=== PATIENT | male | born 1945 | race Caucasian/White ===

== ENCOUNTER 2016-04-15 10:55 | Emergency (ER) | payer MEDICARE, OTHER ==
[2016-04-15 12:17] VITALS: BP 180/83
--- NOTE | 2016-04-15 12:35 | UC ---
Respiratory Complaint HPI - HPI Summary HPI Summary: CHEST CONGESTION X 3 DAYS , + COUGH, NASAL CONGESTION, CHILLS, NO FEVER RASH UNDER LEFT AXILLA , + ITCHY X 7 DAYS, HAD THE RASH IN THE PAST , IMPROVED USING MYCOLOG II - History of Current Complaint Chief Complaint: UCRespiratory Stated Complaint: COUGH,SORE THROAT Time Seen by Provider: 04/15/16 12:23 Hx Obtained From: Patient Onset/Duration: Gradual Onset, Lasting Days - 3, Still Present Timing: Constant Severity Initially: Moderate Severity Currently: Moderate Character: Cough: Nonproductive Aggravating Factors: Allergens, Deep Breaths Alleviating Factors: Nothing Associated Signs And Symptoms: Positive: Chills, URI, Nasal Congestion. Negative: Dyspnea, Fever, Pleuritic Chest Pain, Wheezing, Hemoptysis, Dizziness - Allergies/Home Medications Allergies/Adverse Reactions: Allergies Allergy/AdvReac Type Severity Reaction Status Date / Time Iodinated Diagnostic Agents Allergy Hives Verified 04/15/16 12:17 Chemo for colon C A Allergy Hives Uncoded 04/15/16 12:18 PMH/Surg Hx/FS Hx/Imm Hx Endocrine History Of: Denies: Diabetes Cardiovascular History Of: Denies: Cardiac Disorders Respiratory History Of: Denies: COPD GI/ History Of: Denies: Ulcer Neurological History Of: Denies: TIA Psychological History Of: Denies: Bipolar Disorder Cancer History Of: Reports: Colorectal Cancer - Surgical History Surgical History: Yes Surgery Procedure, Year, and Place: Cyst removed bottom of spine, plate in head , removal of colon tumor-2006. - Family History Known Family History: Positive: Hypertension - Social History Alcohol Use: None Substance Use Type: None Smoking Status (MU): Former Smoker Type: Cigarettes Amount Used/How Often: 1 PPD Length of Time of Smoking/Using Tobacco: 42 Years Have You Smoked in the Last Year: No When Did the Patient Quit Smoking/Using Tobacco: 2006 - Immunization History Most Recent Influenza Vaccination: Not the 2014/2015 Season Review of Systems Constitutional: Chills, Fatigue Skin: Rash Eyes: Negative ENT: Sore Throat, Ear Ache, Nasal Discharge Respiratory: Shortness Of Breath, Cough Cardiovascular: Negative Gastrointestinal: Negative Genitourinary: Negative All Other Systems Reviewed And Are Negative: Yes Physical Exam Triage Information Reviewed: Yes Appearance: Well-Appearing, No Pain Distress, Well-Nourished Vital Signs: Initial Vital Signs Temp 98.8 F 04/15/16 12:06 Pulse 92 04/15/16 12:06 Resp 24 04/15/16 12:06 BP 180/83 04/15/16 12:06 Pulse Ox 97 04/15/16 12:06 Vital Signs Reviewed: Yes Eyes: Positive: Conjunctiva Clear ENT: Positive: Normal ENT inspection, Hearing grossly normal, Pharyngeal erythema, Nasal congestion, Nasal drainage, TMs normal Neck exam: Normal Neck: Positive: Supple, Nontender, No Lymphadenopathy Respiratory: Positive: Chest non-tender, Lungs clear, Normal breath sounds, No respiratory distress Cardiovascular: Positive: RRR, No Murmur, Pulses Normal Skin: Positive: rashes - MACULAR RASH LEFT AXILLA UC Diagnostic Evaluation - Laboratory O2 Sat by Pulse Oximetry: 97 Respiratory Course/Dx - Differential Dx/Diagnosis Provider Diagnoses: BRONCHITIS. SKIN YEAST INFECTION Discharge - Discharge Plan Condition: Stable Disposition: HOME Prescriptions: Azithromycin TAB* [Zithromax TAB (Z-FATOU)*] 0 mg PO .Z-FATOU INSTRUCTIONS #6 tab Nystatin/Triamcinolone CR(NF) [Mycolog CREAM*] 1 applic TOPICAL BID #30 gm Patient Education Materials: Acute Bronchitis (ED), Skin Yeast Infection (ED) Referrals: Michael Way MD [Primary Care Provider] - If Needed
== END 2016-04-15 13:00 | disposition home or self-care (01) ==
LOC: UCCORT 10:55
DX: J40 Bronchitis, not specified as acute or chronic (principal); B37.2 Candidiasis of skin and nail; R53.83 Other fatigue; Z87.891 Personal history of nicotine dependence; Z88.8 Allergy status to other drugs, medicaments and biological substances; Z91.041 Radiographic dye allergy status; Z85.038 Personal history of other malignant neoplasm of large intestine
CPT/HCPCS: 99212; G0463

== ENCOUNTER 2016-06-30 12:55 | Emergency (ER) | payer MEDICARE, OTHER ==
--- NOTE | 2016-06-30 14:51 | UC ---
Throat Pain/Nasal Leonard HPI - HPI Summary HPI Summary: complaint of sore throat and ear pain that started 4 days ago and has been worsening hurts to swallow occasional cough with some sputum at times denies nasal congestion denies fever and chills denies headaches taking sucrets with some relief for 3 days - History of Current Complaint Stated Complaint: SORE THROAT,COUGH Time Seen by Provider: 06/30/16 14:44 Hx Obtained From: Patient - Allergies/Home Medications Allergies/Adverse Reactions: Allergies Allergy/AdvReac Type Severity Reaction Status Date / Time Iodinated Diagnostic Agents Allergy Hives Verified 06/30/16 15:01 Chemo for colon C A Allergy Hives Uncoded 06/30/16 15:01 PMH/Surg Hx/FS Hx/Imm Hx Previously Healthy: Yes Endocrine History Of: Denies: Diabetes Cardiovascular History Of: Denies: Cardiac Disorders Respiratory History Of: Denies: COPD GI/ History Of: Denies: Ulcer Neurological History Of: Denies: TIA Psychological History Of: Denies: Bipolar Disorder Cancer History Of: Reports: Colorectal Cancer - Surgical History Surgical History: Yes Surgery Procedure, Year, and Place: Cyst removed bottom of spine, plate in head , removal of colon tumor-2006. - Family History Known Family History: Positive: Hypertension Negative: Cardiac Disease, Diabetes - Social History Occupation: Retired Lives: With Family Alcohol Use: None Substance Use Type: None Smoking Status (MU): Former Smoker Type: Cigarettes Amount Used/How Often: 1 PPD Length of Time of Smoking/Using Tobacco: 42 Years Have You Smoked in the Last Year: No When Did the Patient Quit Smoking/Using Tobacco: 2006 - Immunization History Most Recent Influenza Vaccination: Not the Season Review of Systems Constitutional: Negative Eyes: Negative ENT: Sore Throat Respiratory: Cough Cardiovascular: Negative Gastrointestinal: Negative Genitourinary: Negative Motor: Negative Neurovascular: Negative Musculoskeletal: Negative Neurological: Negative Psychological: Negative All Other Systems Reviewed And Are Negative: Yes Physical Exam Triage Information Reviewed: Yes Appearance: No Pain Distress, Well-Nourished Vital Signs Reviewed: Yes Eyes: Positive: Conjunctiva Clear ENT: Positive: Pharyngeal erythema, Nasal congestion, Nasal drainage, TMs normal Neck: Positive: No Lymphadenopathy Respiratory: Positive: Lungs clear, Normal breath sounds, No respiratory distress Cardiovascular: Positive: RRR, No Murmur Abdomen Description: Positive: Nontender, Soft Bowel Sounds: Positive: Present Musculoskeletal: Positive: No Edema Neurological: Positive: Alert Psychological Exam: Normal Skin Exam: Normal Throat Pain/Nasal Course/Dx - Differential Dx/Diagnosis Differential Diagnosis/HQI/PQRI: Pharyngitis, Tonsillitis, URI Provider Diagnoses: strep pharyngitis, elevated blood pressure Discharge - Discharge Plan Condition: Stable Disposition: HOME Prescriptions: Penicillin VK TAB 500 MG(NF) [Penicillin VK 500 mg Tab(NF)] 500 mg PO TID #30 tab Patient Education Materials: Strep Throat (ED) Referrals: No Primary Care Phys,NOPCP [Primary Care Provider] - [facility] [place] [facility] [Outside] Additional Instructions: Your blood pressure is elevated. Please contact your primary care provider for further evaluation. STREPTOCOCCAL PHARYNGITIS (Strep Throat) What is Strep Throat? Strep throat is an infection of the throat and/or tonsils caused by Streptococcus bacteria. Strep throat is contagious and can be passed from one person to another through coughing and sneezing. Infections that are caused by bacteria require antibiotics to be cured. You remain contagious until you have taken antibiotics for at least 24 hours. Symptoms Might Include: Pain in the throat area Swelling of the glands in the neck Pain with swallowing Fever Fatigue Ear pain White spots on your tonsils (caused by pus) Treatment Recommendations: An antibiotic may have been prescribed. The antibiotic should be taken until it is completely gone, even if you feel better. If you stop the antibiotic early , you may not cure the infection completely. Gargle with warm saltwater (place 1 tsp. of salt in a large glass of warm water ) every 3 to 4 hours. Take acetaminophen (Tylenol, Tempra) for pain and fever. Drink lots of fluids. Do not smoke. Use throat lozenges (Cepostat, [place], etc.) or suck on hard candy for temporary relief of the pain of swallowing. Dispose of used tissues immediately. Cover your mouth when coughing or sneezing. Wash hands frequently. Call Your Doctor or Return Here IF: Your symptoms do not improve within 2 days or you become worse. You have a fever over 101.0 F orally. You are unable to swallow liquids or saliva. You are drooling. You develop trouble breathing. You develop a rash. You develop a stiff neck. You develop pain in your chest. You develop any symptoms that are new or that concern you
[2016-06-30 15:01] VITALS: BP 160/93
== END 2016-06-30 15:27 | disposition home or self-care (01) ==
LOC: UCCORT 12:55
DX: J02.0 Streptococcal pharyngitis (principal); R03.0 Elevated blood-pressure reading, without diagnosis of hypertension; Z87.891 Personal history of nicotine dependence
CPT/HCPCS: 87651; 99212; G0463

== ENCOUNTER 2016-11-24 08:59 | Emergency (ER) | payer MEDICARE, OTHER ==
[2016-11-24 09:05] VITALS: BP 141/77
--- NOTE | 2016-11-24 09:29 | UC ---
Throat Pain/Nasal Leonard HPI - HPI Summary HPI Summary: 71 y/o male presents to the urgent care c/o RT ear pain and sore throat for the past 3 days. Pt states difficulty swallowing, RT ear pain. Pain is 6/10, has not taken temp at home, but has felt warm. Took Motrin yesterday to alleviate symptoms. Denies CHRISTINE, dizziness, Nasal congestion, chest pain, N/V/D. No other complains - History of Current Complaint Chief Complaint: UCRespiratory Stated Complaint: SORE THROAT,EAR PAIN Time Seen by Provider: 11/24/16 09:15 Hx Obtained From: Patient Onset/Duration: Gradual Onset, Lasting Days, Still Present Severity: Moderate Pain Intensity: 6 Pain Scale Used: 0-10 Numeric Associated Signs & Symptoms: Positive: Dysphagia, Fever - Epiglottits Risk Factors Epiglottis Risk Factors: Negative - Allergies/Home Medications Allergies/Adverse Reactions: Allergies Allergy/AdvReac Type Severity Reaction Status Date / Time Iodinated Diagnostic Agents Allergy Hives Verified 11/24/16 09:05 Chemo for colon C A Allergy Hives Uncoded 11/24/16 09:05 PMH/Surg Hx/FS Hx/Imm Hx Previously Healthy: Yes - Surgical History Surgical History: Yes Surgery Procedure, Year, and Place: Cyst removed bottom of spine, plate in head , removal of colon tumor-2006. - Family History Known Family History: Positive: Hypertension Negative: Cardiac Disease, Diabetes - Social History Occupation: Retired Lives: With Family Alcohol Use: None Substance Use Type: None Smoking Status (MU): Former Smoker Type: Cigarettes Amount Used/How Often: 1 PPD Length of Time of Smoking/Using Tobacco: 42 Years Have You Smoked in the Last Year: No When Did the Patient Quit Smoking/Using Tobacco: 2006 - Immunization History Most Recent Influenza Vaccination: Not the 2014/2015 Season Review of Systems Constitutional: Fever - at home Skin: Negative Eyes: Negative ENT: Sore Throat, Ear Ache - LF ear pain Respiratory: Negative Cardiovascular: Negative Gastrointestinal: Negative Genitourinary: Negative Motor: Negative Neurovascular: Negative Musculoskeletal: Negative Neurological: Negative Psychological: Negative All Other Systems Reviewed And Are Negative: Yes Physical Exam Triage Information Reviewed: Yes Appearance: Well-Appearing, No Pain Distress, Well-Nourished Vital Signs: Initial Vital Signs Temp 99 F 11/24/16 09:01 Pulse 81 11/24/16 09:01 Resp 16 11/24/16 09:01 BP 141/77 11/24/16 09:01 Pulse Ox 98 11/24/16 09:01 Vital Signs Reviewed: Yes Eye Exam: Normal Eyes: Positive: Conjunctiva Clear - PERRLA, EOMI, fundi grossly normal ENT: Positive: Normal ENT inspection, Hearing grossly normal, Pharyngeal erythema - no exudate, TMs normal - RT external ear canal and TM WNL, LF ear canal clear, TM w/ erythema and purulent discharge, tender pinna Dental Exam: Normal Neck exam: Normal Neck: Positive: Supple, Nontender, No Lymphadenopathy Respiratory Exam: Normal Respiratory: Positive: Chest non-tender, Lungs clear, Normal breath sounds Cardiovascular Exam: Normal Cardiovascular: Positive: RRR, No Murmur Abdominal Exam: Normal Abdomen Description: Positive: Nontender, No Organomegaly, Soft. Negative: CVA Tenderness (R), CVA Tenderness (L) Bowel Sounds: Positive: Present Musculoskeletal Exam: Normal Musculoskeletal: Positive: Strength Intact, ROM Intact, No Edema Neurological Exam: Normal Psychological Exam: Normal Skin Exam: Normal Throat Pain/Nasal Course/Dx - Course Course Of Treatment: 71 y/o male presents to the urgent care c/o RT ear pain and sore throat for the past 3 days. Pt states difficulty swallowing, RT ear pain. Pain is 6/10, has not taken temp at home, but has felt warm. Took Motrin yesterday to alleviate symptoms. Denies CHRISTINE, dizziness, Nasal congestion, chest pain, N/V/D. No other complains. Hx obtained. Pt Rx amoxicillin for lef otitis media and Ibuprofen PO to alleviate pain and swelling. Pt BP elevated advised to monitor BP, decrease salt in diet, if continues elevate to f/u with PCP for further treatment. - Differential Dx/Diagnosis Differential Diagnosis/HQI/PQRI: Laryngitis, Mononucleosis, Otitis Media, Pharyngitis, Tonsillitis Provider Diagnoses: 1- Viral pharyngitis. 2-Left acute otitis Media. 3- Elevated blood pressure w/o Hx of HTN Discharge - Discharge Plan Condition: Stable Disposition: HOME Prescriptions: Amoxicillin PO (*) [Amoxicillin 875 MG (*)] 875 mg PO BID #20 tab Ibuprofen TAB* [Motrin TAB* 800 MG] 800 mg PO Q6H #20 tab Patient Education Materials: Pharyngitis (ED), Otitis Media (ED), Low Sodium Diet (ED) Referrals: No Primary Care Phys,NOPCP [Primary Care Provider] - [facility] [place] [facility] [Outside] - If Needed Additional Instructions: 1-Please take full course of antibiotic to avoid resistance for your Otitis Media. Take ibuprofen as instructed after meals to alleviate pain and swelling. If symptoms do not improve or worsen please return to the urgent care or f/u with your PCP for further evaluation and treatment 2- Your BP is elevated today please decrease salt in your diet and monito BP, it still elevated please f/u with your PCP for further treatment.
== END 2016-11-24 09:44 | disposition home or self-care (01) ==
LOC: UCCORT 08:59
DX: H66.91 Otitis media, unspecified, right ear (principal); J02.9 Acute pharyngitis, unspecified; R03.0 Elevated blood-pressure reading, without diagnosis of hypertension
CPT/HCPCS: 99212; G0463